=== PATIENT | female | born 1960 | race Two or more races ===

== ENCOUNTER 2018-09-07 09:03 | Outpatient (CLI) | payer OTHER | END 2018-09-07 09:06 | disposition home or self-care (01) | LOC: MAMO-SONO 09:03 | DX: Z12.31 Encounter for screening mammogram for malignant neoplasm of breast (principal) ==

== ENCOUNTER 2019-07-02 12:21 | Outpatient (CLI) | payer OTHER | END 2019-07-02 12:24 | disposition home or self-care (01) | LOC: RAD 12:21 | DX: M54.12 Radiculopathy, cervical region (principal); M54.2 Cervicalgia ==

== ENCOUNTER → 2023-03-29 | Outpatient (CLI) | payer OTHER | END | disposition home or self-care (01) | LOC: MAMO-SONO 09:26 | PROVIDERS: ATTEND Obstetrics & Gynecology | DX: N60.11 Diffuse cystic mastopathy of right breast (principal); N60.12 Diffuse cystic mastopathy of left breast; Z12.31 Encounter for screening mammogram for malignant neoplasm of breast ==

== ENCOUNTER 2023-04-04 13:12 | Outpatient (CLI) | payer OTHER | END 2023-04-04 13:13 | disposition home or self-care (01) | LOC: NUCLEAR 13:12 | PROVIDERS: ATTEND Obstetrics & Gynecology | DX: M81.0 Age-related osteoporosis without current pathological fracture (principal) ==

== ENCOUNTER 2023-05-12 10:27 | Outpatient (CLI) | payer OTHER | END 2023-05-12 10:34 | disposition home or self-care (01) | LOC: RAD 10:27 | PROVIDERS: ATTEND Physical Medicine & Rehabilitation | DX: M54.59 Other low back pain (principal); M54.6 Pain in thoracic spine ==